=== PATIENT | male | born 1970 | race African-American/Black ===

== ENCOUNTER 2017-07-11 10:41 | Inpatient (IN) | payer SELFPAY ==
[~2017-07-11] VITALS: Ht 167.6 cm; Wt 83.8 kg
[~2017-07-11 10:41] MED LIST: RISP3 PO
[2017-07-11 10:50] VITALS: BP 163/90; PULSE 70; RESP 16; TEMP 98.5; O2SAT 100
--- NOTE | 2017-07-11 11:34 | PD ---
HPI . Anxiety Chief Complaint: Anxiety Time Seen by Provider: 11:00 Travel History International Travel<30 days: No Contact w/Intl Traveler<30days: No Traveled to known affect area: No History of Present Illness HPI This patient was reportedly dropped off at triage by EVAC with a chief complaint of anxiety. The patient is not talking to me or to his nurse or his student support advisor. Triage states that he told them that he was here for anxiety. I am not able to obtain any history from him at all. He will not speak and he will not write. Review of his records reveals that he has a history of paranoid schizophrenia. PFSH Past Medical History Cancer: No Cardiovascular Problems: No Diabetes: No Diminished Hearing: No Headaches: No Psychiatric: Yes (Pt reports he was being treated by [facility] for mental illness) Immunizations Current: Yes Schizophrenia: Yes Seizures: No Social History Alcohol Use: No Tobacco Use: No Substance Use: Yes Allergies-Medications (Allergen,Severity, Reaction): Coded Allergies: penicillin G (Unverified Allergy, Unknown, 11/05/16) Reported Meds & Prescriptions Reported Meds & Active Scripts Active Risperdal (Risperidone) 3 Mg Tab 3 Mg PO Q12HR 30 Days Review of Systems ROS Limitations: Uncooperative Physical Exam Narrative GENERAL: Awake and alert and in no acute distress. He will nod and smile and say a word here or there but will not answer questions as to why he is here. He told the nurse that she was a "baby" and pointed to my watch and said "[employer]". SKIN: Warm and dry. HEAD: Normocephalic/atraumatic. EYES: Pupils are equal. Extraocular movements are intact. ENT: Mucous membranes are moist. NECK: Normal range of motion. CARDIOVASCULAR: Regular rate and rhythm. RESPIRATORY: Nonlabored respirations. MUSCULOSKELETAL: Atraumatic. NEUROLOGICAL: He is alert. His cranial nerves appear grossly intact. He is ambulatory and is moving all 4 extremities equally. He will not cooperate for evaluation of muscle strength, [id number] exam, etc. PSYCHIATRIC: He smiles. Other than that, I cannot assess his psyche. Data Data Last Documented VS Vital Signs Date Time Temp Pulse Resp B/P (MAP) Pulse Ox O2 Delivery O2 Flow Rate FiO2 07/11/17 10:50 98.5 70 16 163/90 (114) 100 Orders Orders Complete Blood Count With Diff (07/11/17 11:11) Comprehensive Metabolic Panel (07/11/17 11:11) Thyroid Stimulating Hormone (07/11/17 11:11) Psych Screen (07/11/17 11:11) Drug Screen, Random Urine (07/11/17 11:11) Diet Heart Healthy (07/11/17 Lunch) Ziprasidone Inj (Geodon Inj) (07/11/17 15:15) Potassium Chloride (Kcl) (07/11/17 16:15) Labs Laboratory Tests Test 07/11/17 15:05 White Blood Count 8.1 TH/MM3 Red Blood Count 5.32 MIL/MM3 Hemoglobin 15.8 GM/DL Hematocrit 46.8 % Mean Corpuscular Volume 87.9 FL Mean Corpuscular Hemoglobin 29.7 PG Mean Corpuscular Hemoglobin Concent 33.8 % Red Cell Distribution Width 14.9 % Platelet Count 291 TH/MM3 Mean Platelet Volume 8.0 FL Neutrophils (%) (Auto) 72.0 % Lymphocytes (%) (Auto) 18.9 % Monocytes (%) (Auto) 8.0 % Eosinophils (%) (Auto) 0.3 % Basophils (%) (Auto) 0.8 % Neutrophils # (Auto) 5.9 TH/MM3 Lymphocytes # (Auto) 1.5 TH/MM3 Monocytes # (Auto) 0.7 TH/MM3 Eosinophils # (Auto) 0.0 TH/MM3 Basophils # (Auto) 0.1 TH/MM3 CBC Comment DIFF FINAL Differential Comment Blood Urea Nitrogen 12 MG/DL Creatinine 0.99 MG/DL Random Glucose 93 MG/DL Total Protein 9.1 GM/DL Albumin 4.6 GM/DL Calcium Level 9.1 MG/DL Alkaline Phosphatase 66 U/L Aspartate Amino Transf (AST/SGOT) 19 U/L Alanine Aminotransferase (ALT/SGPT) 28 U/L Total Bilirubin 0.6 MG/DL Sodium Level 140 MEQ/L Potassium Level 3.2 MEQ/L Chloride Level 106 MEQ/L Carbon Dioxide Level 25.7 MEQ/L Anion Gap 8 MEQ/L Estimat Glomerular Filtration Rate 98 ML/MIN Thyroid Stimulating Hormone 3rd Gen 1.020 uIU/ML MDM Medical Decision Making Medical Screen Exam Complete: Yes Emergency Medical Condition: Yes Medical Record Reviewed: Yes (Medical records reveal a history of paranoid schizophrenia) Differential Diagnosis Differential diagnosis of psychosis includes but is not limited to schizophrenia , schizoaffective disorder, bipolar disorder, intoxication, substance abuse, dementia Narrative Course This patient presented to us by EVAC to triage reportedly for anxiety. The patient will not provide any history either verbally or by writing. He will not allow us to check his phone for contact numbers. He is here alone. Medical screening exam is in process. We will then ask psychiatry to see him. CBC & BMP Diagram 07/11/17 15:05 Total Protein 9.1 H, Albumin 4.6, Calcium Level 9.1, Alkaline Phosphatase 66, Aspartate Amino Transf (AST/SGOT) 19, Alanine Aminotransferase (ALT/SGPT) 28, Total Bilirubin 0.6 Potassium has been replaced orally. This patient is medically clear for psychiatric admission. Diagnosis Primary Impression: Medical clearance for psychiatric admission Condition: Stable Magali Craig MD Jul 11, 2017 11:34
[2017-07-11] MEDS ORDERED: ZIPRASIDONE MESYLATE 20 MG VIAL IM SCH (15:15)
[2017-07-11 15:28] LABS: AUTOMATED NEUTROPHIL # 5.9 TH/MM3 (1.8-7.7); BASOPHIL # 0.1 TH/MM3 (0-0.2); BASOPHIL % 0.8 % (0.0-2.0); EOSINOPHIL % 0.3 % (0.0-4.0); HEMATOCRIT 46.8 % (39.0-51.0); HEMOGLOBIN 15.8 GM/DL (13.0-17.0); LYMPH % 18.9 % (9.0-44.0); LYMPHOCYTE # 1.5 TH/MM3 (1.0-4.8); MEAN CELL VOLUME 87.9 FL (80.0-100.0); MEAN CORPUSCULAR HEMOGLOBIN 29.7 PG (27.0-34.0); MEAN CORPUSCULAR HGB CONC 33.8 % (32.0-36.0); MONOCYTE # 0.7 TH/MM3 (0-0.9); PLATELET COUNT 291 TH/MM3 (150-450); RED BLOOD COUNT 5.32 MIL/MM3 (4.50-5.90); RED CELL DISTRIBUTION WIDTH 14.9 % (11.6-17.2); WHITE BLOOD COUNT 8.1 TH/MM3 (4.0-11.0)
[2017-07-11 15:55] LABS: ALBUMIN 4.6 GM/DL (3.4-5.0); ALT (GPT) 28 U/L (12-78); AST (GOT) 19 U/L (15-37); BICARBONATE 25.7 MEQ/L (21.0-32.0); BLOOD UREA NITROGEN 12 MG/DL (7-18); CALCIUM 9.1 MG/DL (8.5-10.1); CHLORIDE 106 MEQ/L (98-107); CREATININE 0.99 MG/DL (0.60-1.30); GLOMERULAR FILTRATION RATE 98 ML/MIN (>89); GLUCOSE,RANDOM 93 MG/DL (74-106); SODIUM (NA) 140 MEQ/L (136-145)
[2017-07-11 16:05] LABS: ALKALINE PHOSPHATASE 66 U/L (45-117); TOTAL BILIRUBIN ADULT 0.6 MG/DL (0.2-1.0); TOTAL PROTEIN 9.1 GM/DL (6.4-8.2)
[2017-07-11] MEDS ORDERED: POTASSIUM CHLORIDE 20 MEQ CONTROLLED RELEASE TAB PO ONE (16:15)
[2017-07-11 18:57] VITALS: BP 140/76; PULSE 80; RESP 16; TEMP 98.7; O2SAT 98
[2017-07-11 22:35] VITALS: BP 132/74; PULSE 80; RESP 18; TEMP 98.7; O2SAT 98
[2017-07-12 06:25] VITALS: BP 130/77; PULSE 99; RESP 18; TEMP 99.5; O2SAT 97
--- NOTE | 2017-07-12 08:02 | HHI.HP ---
Provisional Diagnosis Admission Date 07/12/17 [place] I. 1. Schizophrenia, paranoid type, in acute exacerbation with catatonia [place] II. Deferred Certification of Person's Competence To Provide Express and Informed Consent I have personally examined Jong Gutierrez , a person being served at [facility] on, Jul 12, 2017 08:02. Express and informed consent means consent voluntarily given in writing, by a competent person, after sufficient explanation and disclosure of the subject matter involved to enable the person to make a knowing and willful decision without any element of force, fraud, deceit, duress, or other form of constraint or coercion. This person is 18 years of age or older, is not now known to be incompetent to consent to treatment with a guardian advocate, and does not have a health care surrogate or proxy currently making medical treatment decisions. I have found this person to be one of the following: [] Competent to provide express and informed consent, as defined above, for voluntary admission to this facility and is competent to provide express and informed consent for treatment. He/she has the consistent capacity to make well reasoned, willful, and knowing decisions concerning his or her medical or mental health treatment. The person fully and consistently understands the purpose of the admission for examination/placement and is fully capable of personally exercising all rights assured [place] [x] Incompetent to provide express and informed consent to voluntary admission, and this is incompetent to provide express and informed consent to treatment. The person must be transferred to involuntary status and a petition for a guardian advocate filed with the Circuit Court. [] Refusing to provide express and informed consent to voluntary admission but is competent to provide express and informed consent for treatment. The person must be discharged or transferred to involuntary status. Form shall be completed within 24 hours of a person's arrival at the receiving facility and filed in the clinical record of each person: 1. Admitted on a voluntary basis 2. Permitted to provide express and informed consent to his/her own treatment 3. Allowed to transfer from involuntary to voluntary status 4. Prior to permitting a person to consent to his or her own treatment after having been previously found incompetent to consent to treatment. History of Present Illness Capacity: Lacks Capacity Psych Chief Complaint: Psychosis/catatonia HPI Mr. Gutierrez is a 46-year-old male with a history of schizophrenia who presented voluntarily for psychiatric evaluation. Patient was mute for ED provider. Reviewing the electronic medical record, I note the patient was admitted [place] [address] Soliman. Patient seen and examined. Chart reviewed. Case discussed with nursing staff. On my initial examination, the patient is posturing and mute. He is disheveled. He exhibits waxy flexibility, negativism and gegenhalten. Suspecting catatonia, I have ordered RN to medicate patient with Ativan 2mg IM stat. I return ~20min later to re-assess patient. He is somewhat more interactive. He does verbalize somewhat, although his responses to questions and to verbal instruction remain inappropriate. For example, when I ask him to give me his arm to examine for ongoing waxy flexibility he instead hands me the bible at his bedside. He smiles inappropriately. He is non-committal regarding SI/HI/AVH when asked about each of these. He appears internally stimulated. When I ask in conclusion if he has anything else to tell me, he says "my father was a [place] ." As I am exiting, the patient tries repeatedly to beckon me to within his arms' reach. Psychiatric interview is limited because of patient's psychiatric condition. He does not verbalize any physical complaints. I am unable to obtain any past psychiatric, family, chemical dependency or social history from the patient because of his psychiatric impairment at present. I obtained collateral information from the patient's Anahi Hernández at . She notes that the patient has a history of paranoid schizophrenia and has a history of psychiatric decompensations surrounding moves to a new locale. She notes that the family recently moved from [facility] about a month ago, and she suspects that the patient has not been taking his meds since arriving in the area. He was previously on Risperdal and received some sort of long-acting injectable. She notes that the patient has a history of catatonia in the past. She is willing to serve as health care surrogate. She is in agreement with having the patient hospitalized now and after discussion of the R /B/A is in agreement with the treatment plan as outlined below. We discussed patient's legal status and [place] act [address]. I spent approximately 10 minutes in telephone consultation with patient's . Review of Systems ROS Limitations: Psychotic, Poor Historian, Other (Catatonic) Other Limited ROS secondary to above. Past Family Social History Coded Allergies: penicillin G (Unverified Allergy, Unknown, 11/05/16) Past Medical History Per , no chronic medical conditions. On no home medications besides psychotropics. Discontinued Scripts Risperidone (Risperdal) 3 Mg Tab, 3 MG PO Q12HR for hallucinations for 30 Days, TAB 0 Refills Prov:Ayden Soliman MD 10/07/14 Current Medications Medications (Trade) Dose Ordered Sig/Pablo Route Start Time Stop Time Status Last Admin (Geodon Inj) 20 mg ONCE IM 07/11/17 15:15 07/11/17 15:20 Patient's Strengths (min. 2) Supportive . In a monitored setting. Physical Exam Physical examination completed by ED provider. On my examination today, the patient appears to be in no acute physical distress. Motor exam as above. Labs and vitals reviewed: Vital Signs Vital Signs Date Time Temp Pulse Resp B/P (MAP) Pulse Ox O2 Delivery O2 Flow Rate FiO2 07/12/17 06:25 99.5 99 18 130/77 (94) 97 Room Air Lab Results Test 07/11/17 15:05 White Blood Count 8.1 TH/MM3 Red Blood Count 5.32 MIL/MM3 Hemoglobin 15.8 GM/DL Hematocrit 46.8 % Mean Corpuscular Volume 87.9 FL Mean Corpuscular Hemoglobin 29.7 PG Mean Corpuscular Hemoglobin Concent 33.8 % Red Cell Distribution Width 14.9 % Platelet Count 291 TH/MM3 Mean Platelet Volume 8.0 FL Neutrophils (%) (Auto) 72.0 % Lymphocytes (%) (Auto) 18.9 % Monocytes (%) (Auto) 8.0 % Eosinophils (%) (Auto) 0.3 % Basophils (%) (Auto) 0.8 % Neutrophils # (Auto) 5.9 TH/MM3 Lymphocytes # (Auto) 1.5 TH/MM3 Monocytes # (Auto) 0.7 TH/MM3 Eosinophils # (Auto) 0.0 TH/MM3 Basophils # (Auto) 0.1 TH/MM3 CBC Comment DIFF FINAL Differential Comment Blood Urea Nitrogen 12 MG/DL Creatinine 0.99 MG/DL Random Glucose 93 MG/DL Total Protein 9.1 GM/DL Albumin 4.6 GM/DL Calcium Level 9.1 MG/DL Alkaline Phosphatase 66 U/L Aspartate Amino Transf (AST/SGOT) 19 U/L Alanine Aminotransferase (ALT/SGPT) 28 U/L Total Bilirubin 0.6 MG/DL Sodium Level 140 MEQ/L Potassium Level 3.2 MEQ/L Chloride Level 106 MEQ/L Carbon Dioxide Level 25.7 MEQ/L Anion Gap 8 MEQ/L Estimat Glomerular Filtration Rate 98 ML/MIN Thyroid Stimulating Hormone 3rd Gen 1.020 uIU/ML Mental Status Examination Appearance: Disheveled Consciousness: Other (Stuporous) Orientation: Person Motor Activity: Other (Motor exam as above) Speech: Other (Initially mute) Language: Other (When verbal, rambling) Attention and Concentration: Inadequate Mood: Other (Unable to obtain) Affect: Flat Thought Process & Associations: Disorganized Thought Content: Bizarre thinking, Thought blocking Hallucination Type: Auditory (Internally stimulated) Delusion Type: Other (Difficult to assess due to catatonia and formal thought disorder) Insight: Poor Judgment: Poor Mental Status Exam Remarks Patient is noncommittal regarding suicidal or homicidal ideation Assessment & Plan Problem List: (1) Schizophrenia ICD Codes: F20.9 - Schizophrenia, unspecified (2) Catatonia associated with another mental disorder ICD Codes: F06.1 - Catatonic disorder due to known physiological condition Assessment & Plan 46-year-old male with psychiatric history as detailed above who presents voluntarily for psychiatric evaluation. I find the patient in a catatonic state , partially relieved with IM Ativan. Collateral from patient's indicates that the patient has a history of paranoid schizophrenia and has had catatonia previously during exacerbations. He has previously been on Risperdal and long- acting injectable. I will plan to admit the patient to the inpatient psychiatric unit for safety, observation and stabilization. Admit inpatient. Involuntary status. I have completed first opinion. Consult for second opinion. Request healthcare surrogate and guardian advocate. For catatonia I will start the patient on scheduled Ativan 1 mg IV every 6 hours. For psychosis, I will start the patient on Risperdal 1 mg twice daily with plans to titrate to effect. Haldol IM as needed for severe agitation or in case of refusal of oral Risperdal. Additional Ativan as needed for anxiety, Cogentin as needed for EPS, Benadryl as needed for sleep. Check an EKG for QTC. Check a CK given catatonic state. Check a BMP and hemoglobin A1c as well as lipid panel in the morning. Vitals every shift. Counselor to see. Disposition planning. Estimated length of stay: 7-9 days. Discharge Planning Pending psychiatric stabilization Request HC Surrog/Guard Advoc?: Yes Problem Qualifiers (1) Schizophrenia: Qualified Codes: F20.0 - Paranoid schizophrenia Melo Moore MD Jul 12, 2017 08:02
[2017-07-12] MEDS ORDERED: LORazepam 2 MG/ML VIAL IM STA (08:06)
[2017-07-12] MEDS ORDERED: LORazepam 1 MG TAB PO PRN (09:00)
[2017-07-12] MEDS ORDERED: ACETAMINOPHEN 325 MG TAB PO PRN (09:00)
[2017-07-12] MEDS ORDERED: LORazepam 2 MG/ML VIAL IM PRN (09:00)
[2017-07-12] MEDS ORDERED: ALUMINUM/MAGNESIUM/SIMETH 30 ML CUP PO PRN (09:00)
[2017-07-12] MEDS ORDERED: MAGNESIUM HYDROXIDE SUSP 30 ML CUP PO PRN (09:00)
[2017-07-12] MEDS ORDERED: BENZTROPINE MESYLATE 1 MG TAB PO PRN (09:00)
[2017-07-12] MEDS ORDERED: HALOPERIDOL LACTATE 5 MG/ML AMP IM PRN (09:00)
[2017-07-12] MEDS: risperiDONE ODT 1 MG TAB PO SCH ×2 (09:00→20:27)
[2017-07-12] MEDS ORDERED: diphenhydrAMINE HCL 50 MG CAP PO PRN (09:00)
[2017-07-12] MEDS ORDERED: BENZTROPINE MESYLATE 2 MG/2 ML VIAL IM PRN (09:00)
[2017-07-12] MEDS ORDERED: NICOTINE 21 MG/24 HR PATCH T-DERMAL PRN (10:00)
[2017-07-12] MEDS ORDERED: LORazepam 2 MG/ML VIAL IV PUSH SCH (10:00)
[2017-07-12] MEDS: REMOVE OLD PATCH T-DERMAL SCH (10:00)
[2017-07-12 12:18] VITALS: BP 143/83; PULSE 79; RESP 18; TEMP 98.6
[2017-07-12 17:10] VITALS: BP 130/72; PULSE 71; RESP 18; TEMP 97.9; O2SAT 97
[2017-07-12] MEDS: LORazepam 2 MG/ML VIAL IM SCH ×2 (17:17→21:51)
[2017-07-13] MEDS: LORazepam 2 MG/ML VIAL IM SCH ×4 (04:00→22:22)
[2017-07-13 06:00] VITALS: BP 126/82; PULSE 97; RESP 17; TEMP 97.3; O2SAT 96
[2017-07-13] MEDS: REMOVE OLD PATCH T-DERMAL SCH (09:00)
[2017-07-13] MEDS: risperiDONE ODT 1 MG TAB PO SCH ×2 (09:00→20:53)
[2017-07-13 11:49] LABS: BICARBONATE 28.8 MEQ/L (21.0-32.0); BLOOD UREA NITROGEN 13 MG/DL (7-18); CALCIUM 9.3 MG/DL (8.5-10.1); CHLORIDE 102 MEQ/L (98-107); CHOLESTEROL 319 MG/DL (120-200); GLOMERULAR FILTRATION RATE 78 ML/MIN (>89); GLUCOSE,RANDOM 108 MG/DL (74-106); SODIUM (NA) 140 MEQ/L (136-145); TRIGLYCERIDES 84 MG/DL (42-150)
[2017-07-13 11:52] LABS: CHOLESTEROL/ HDL RATIO 6.49 RATIO; HDL CHOLESTEROL 49.1 MG/DL (40.0-60.0); LDL CHOLESTEROL 253 MG/DL (0-99)
--- NOTE | 2017-07-13 13:13 | HHI.PYPN ---
Subjective Chief Complaint: Psychosis/catatonia Remarks This is a request for second opinion. Admission note was reviewed and I agree with the history. Patient was seen and case was discussed with nursing. Patient is no longer catatonic today he is selectively mute per nursing. From my interview he was interactive and would answer most questions. According to the christopher Mcadams, patient asked them if he was allowed to have a gone without a felony conviction. To protect himself. When patient was asked about this he says he does not remember having asked that question. Also says I do not remember to many other questions. He has auditory hallucinations of music. He is behaving well on the unit Mental Status Examination Appearance: Disheveled Consciousness: Other Orientation: Person Motor Activity: Other Speech: Other Language: Adequate, Other Attention and Concentration: Adequate, Inadequate Memory: Unremarkable Mood: Sad, Oppositional, Other Affect: Irritable, Flat Thought Process & Associations: Disorganized Thought Content: Bizarre thinking, Thought blocking Hallucination Type: Auditory (Music) Delusion Type: Other Suicidal Ideation: No Suicidal Plan: No Suicidal Intention: No Homicidal Ideation: No Homicidal Plan: No Homicidal Intention: No Insight: Poor Judgment: Poor Results Labs Test 07/13/17 10:34 Blood Urea Nitrogen 13 MG/DL Creatinine 1.20 MG/DL Random Glucose 108 MG/DL Calcium Level 9.3 MG/DL Sodium Level 140 MEQ/L Potassium Level 3.4 MEQ/L Chloride Level 102 MEQ/L Carbon Dioxide Level 28.8 MEQ/L Anion Gap 9 MEQ/L Estimat Glomerular Filtration Rate 78 ML/MIN Triglycerides Level 84 MG/DL Cholesterol Level 319 MG/DL LDL Cholesterol 253 MG/DL HDL Cholesterol 49.1 MG/DL Cholesterol/HDL Ratio 6.49 RATIO Vitals/IOs Vital Signs Date Time Temp Pulse Resp B/P (MAP) Pulse Ox O2 Delivery O2 Flow Rate FiO2 07/12/17 17:10 97.9 71 18 130/72 (91) 97 07/12/17 06:25 Room Air Assessment & Plan Problem List: (1) Schizophrenia ICD Codes: F20.9 - Schizophrenia, unspecified (2) Catatonia associated with another mental disorder ICD Codes: F06.1 - Catatonic disorder due to known physiological condition Assessment & Plan I agree with the first opinion to continue petition. Criteria include resolving catatonia and self-care deficits Justification for Cont. Inpt. Patient would decompensate in a less restrictive setting Request HC Surrog/Guard Advoc?: Yes Problem Qualifiers (1) Schizophrenia: Qualified Codes: F20.0 - Paranoid schizophrenia Ant Kramer DO Jul 13, 2017 13:13
[2017-07-13 15:59] VITALS: BP 133/99; PULSE 88; RESP 17; TEMP 97.5; O2SAT 96
--- NOTE | 2017-07-14 00:40 | EKG ---
Date Performed: 07/12/2017 Time Performed: 14:11:33 PTAGE: 46 years EKG: Sinus rhythm ST DEVIATION AND MODERATE T-WAVE ABNORMALITY, CONSIDER INFERIOR ISCHEMIA ABNORMAL ECG NO PREVIOUS TRACING DOCTOR: Sherif Sprague Interpretating Date/Time 07/14/2017 00:39:55
[2017-07-14] MEDS: LORazepam 2 MG/ML VIAL IM SCH (04:12)
[2017-07-14 06:23] VITALS: BP 129/88; PULSE 79; RESP 18; TEMP 97.1; O2SAT 96
[2017-07-14] MEDS: risperiDONE ODT 1 MG TAB PO SCH (08:23)
[2017-07-14] MEDS: REMOVE OLD PATCH T-DERMAL SCH (09:00)
--- NOTE | 2017-07-14 10:02 | HHI.PYPN ---
Subjective Chief Complaint: Psychosis/catatonia Remarks Patient seen and examined with nurse. Chart reviewed. Case discussed with nursing staff who reports the patient has been well behaved on the unit but has been noted to have long conversations on the telephone with no one suspected to be on the other end. On my examination today, catatonia seems to be resolving. The patient continues to exhibit thought disorder however. He seems to apologize for his behavior at our first meeting, although I do not recall this being particularly disturbed except by psychosis, and he says that this was due to "rejection to us meeting because we went to 2 different universities." When I try to inquire what University he attended he says "that is hypothetical." He denies any SI or HI. Denies any AVH but remained somewhat internally stimulated. Applauds at nothing in particular. Denies side effects from medications. No physical complaints. Review of Systems ROS Limitations: Psychotic, Poor Historian Except as stated in HPI: all other systems reviewed are Neg Mental Status Examination Appearance: Appropriate Consciousness: Alert Orientation: Person, Place Motor Activity: Other (No hand tremor, no cogwheeling, no dystonia, no dyskinesia. No posturing, no stereotypies (besides possibly applauding), no other signs of catatonia.) Speech: Other Language: Adequate, Other Attention and Concentration: Adequate, Inadequate Memory: Impaired (Psychosis interferes) Mood: Other (calm) Affect: Blunt Thought Process & Associations: Tangential Thought Content: Bizarre thinking, Thought blocking Hallucination Type: Other (Appears internally stimulated) Delusion Type: None Suicidal Ideation: No Suicidal Plan: No Suicidal Intention: No Homicidal Ideation: No Homicidal Plan: No Homicidal Intention: No Insight: Poor Judgment: Poor Results Labs Test 07/13/17 10:34 Blood Urea Nitrogen 13 MG/DL Creatinine 1.20 MG/DL Random Glucose 108 MG/DL Calcium Level 9.3 MG/DL Sodium Level 140 MEQ/L Potassium Level 3.4 MEQ/L Chloride Level 102 MEQ/L Carbon Dioxide Level 28.8 MEQ/L Anion Gap 9 MEQ/L Estimat Glomerular Filtration Rate 78 ML/MIN Total Creatine Kinase 569 U/L Creatine Kinase MB 1.6 NG/ML Creatine Kinase MB % 0.3 % Triglycerides Level 84 MG/DL Cholesterol Level 319 MG/DL LDL Cholesterol 253 MG/DL HDL Cholesterol 49.1 MG/DL Cholesterol/HDL Ratio 6.49 RATIO Labs reviewed Vitals/IOs Vital Signs Date Time Temp Pulse Resp B/P (MAP) Pulse Ox O2 Delivery O2 Flow Rate FiO2 07/14/17 06:23 97.1 79 18 129/88 (102) 96 07/12/17 06:25 Room Air Assessment & Plan Problem List: (1) Schizophrenia ICD Codes: F20.9 - Schizophrenia, unspecified (2) Catatonia associated with another mental disorder ICD Codes: F06.1 - Catatonic disorder due to known physiological condition Assessment & Plan: resolving Assessment & Plan Titrate Risperdal to 2 mg twice daily to target psychotic symptoms. I will change patient's Ativan to 1mg q6h PO. Encourage fluids, replete K and recheck a BMP, CK and check a Mg in am. Continue to monitor on inpatient unit. Continue other medications and care as ordered. Justification for Cont. Inpt. Med changes. Impairment in reality construction. Risk for decompensation in less restrictive environment. Discharge Planning Pending psychiatric stabilization Request HC Surrog/Guard Advoc?: Yes Problem Qualifiers (1) Schizophrenia: Qualified Codes: F20.0 - Paranoid schizophrenia Melo Moore MD Jul 14, 2017 10:02
[2017-07-14] MEDS: LORazepam 1 MG TAB PO SCH ×3 (10:17→23:59)
[2017-07-14] MEDS ORDERED: POTASSIUM CHLORIDE 10 MEQ CONTROLLED RELEASE TAB PO ONE (11:30)
[2017-07-14 16:42] LABS: HEMOGLOBIN A1C 5.5 % (4.3-6.0)
[2017-07-14] MEDS: risperiDONE ODT 2 MG TAB PO SCH (21:08)
[2017-07-15] MEDS: LORazepam 1 MG TAB PO SCH (06:00)
[2017-07-15 06:18] VITALS: BP 141/84; PULSE 97; RESP 18; TEMP 97.7
[2017-07-15] MEDS: REMOVE OLD PATCH T-DERMAL SCH (09:00)
[2017-07-15] MEDS: risperiDONE ODT 2 MG TAB PO SCH (09:23)
--- NOTE | 2017-07-15 10:35 | HHI.PYPN ---
Subjective Chief Complaint: Psychosis/catatonia Remarks Patient seen and examined with nurse. Chart reviewed. Case discussed with nursing staff. Patient continues to make odd statements at times per nursing staff. Case discussed in treatment team. Counselor notes patient's is desirous to have patient home as soon as possible. I did endeavor to reach out to patient's today by phone but could not reach her. On my exam, patient is discharge focused. He speaks at length, although it remains a little difficult to follow the sense of what he is saying. He displays a buddhism preoccupation. He denies SI/HI. He denies AVH but remains somewhat internally stimulated. No side effects from medications. No physical complaints. Review of Systems ROS Limitations: Psychotic, Poor Historian Except as stated in HPI: all other systems reviewed are Neg Mental Status Examination Appearance: Appropriate Consciousness: Alert Orientation: Person, Place Motor Activity: Other (No motor abnormalities noted) Speech: Unremarkable Language: Other (Rambling) Fund of Knowledge: Adequate Attention and Concentration: Adequate Memory: Impaired (Psychosis interferes) Mood: Other (calm) Affect: Blunt Thought Process & Associations: Circumstantial Thought Content: Bizarre thinking Hallucination Type: Other (Remains a little internally stimulated) Delusion Type: None Suicidal Ideation: No Suicidal Plan: No Suicidal Intention: No Homicidal Ideation: No Homicidal Plan: No Homicidal Intention: No Insight: Poor Judgment: Poor Results Labs Labs reviewed. CK slightly increased. GFR stable. Vitals/IOs Vital Signs Date Time Temp Pulse Resp B/P (MAP) Pulse Ox O2 Delivery O2 Flow Rate FiO2 07/15/17 06:18 97.7 97 18 141/84 (103) 07/14/17 06:23 96 07/12/17 06:25 Room Air Assessment & Plan Problem List: (1) Schizophrenia ICD Codes: F20.9 - Schizophrenia, unspecified Assessment & Plan Catatonia appears to be resolved but patient continues to exhibit thought disorder consistent with psychosis. Discontinue scheduled Ativan and titrate Risperdal to 3mg BID. To consider long-acting injectable antipsychotic. CK is mildly increased but not to a degree to require IVF, and there is no evidence of worsening renal function. I will trend CK and BMP. Continue to monitor on inpatient unit. Continue other medications and care as ordered. Justification for Cont. Inpt. Medication changes. Impairment in reality construction, resolving. High risk for decompensation in less restrictive environment. Discharge Planning Pending psychiatric stabilization Request HC Surrog/Guard Advoc?: Yes Problem Qualifiers (1) Schizophrenia: Qualified Codes: F20.0 - Paranoid schizophrenia Melo Moore MD Jul 15, 2017 10:35
[2017-07-15 11:18] LABS: CALCIUM 9.5 MG/DL (8.5-10.1); CREATININE 1.19 MG/DL (0.60-1.30); MAGNESIUM 2.2 MG/DL (1.5-2.5)
[2017-07-15] MEDS ORDERED: LORazepam 0.5 MG TAB PO SCH (12:00)
[2017-07-15 18:19] VITALS: BP 124/72; PULSE 88; RESP 18; TEMP 98; O2SAT 99
[2017-07-15] MEDS: risperiDONE ODT 3 MG TAB PO SCH (20:11)
[2017-07-16 05:38] VITALS: BP 164/82; PULSE 82; RESP 16; TEMP 97.9; O2SAT 99
[2017-07-16] MEDS: risperiDONE ODT 3 MG TAB PO SCH (08:30)
[2017-07-16] MEDS: REMOVE OLD PATCH T-DERMAL SCH (09:00)
[2017-07-16 09:50] LABS: BICARBONATE 27.6 MEQ/L (21.0-32.0); CALCIUM 9.3 MG/DL (8.5-10.1); CREATININE 1.12 MG/DL (0.60-1.30)
[2017-07-16] MEDS ORDERED: RISP3 PO (10:25)
--- NOTE | 2017-07-16 10:25 | HHI.DS ---
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 Gutierrez is a 46-year-old male with a history of schizophrenia who presented voluntarily for psychiatric evaluation. Patient was mute for ED provider. Reviewing the electronic medical record, I note the patient was admitted in [address] Soliman. Patient seen and examined. Chart reviewed. Case discussed with nursing staff. On my initial examination, the patient is posturing and mute. He is disheveled. He exhibits waxy flexibility, negativism and gegenhalten. Suspecting catatonia, I have ordered RN to medicate patient with Ativan 2mg IM stat. I return ~20min later to re-assess patient. He is somewhat more interactive. He does verbalize somewhat, although his responses to questions and to verbal instruction remain inappropriate. For example, when I ask him to give me his arm to examine for ongoing waxy flexibility he instead hands me the bible at his bedside. He smiles inappropriately. He is non-committal regarding SI/HI/AVH when asked about each of these. He appears internally stimulated. When I ask in conclusion if he has anything else to tell me, he says "my father was a [place] ." As I am exiting, the patient tries repeatedly to beckon me to within his arms' reach. Psychiatric interview is limited because of patient's psychiatric condition. He does not verbalize any physical complaints. I am unable to obtain any past psychiatric, family, chemical dependency or social history from the patient because of his psychiatric impairment at present. I obtained collateral information from the patient's Anahi Hernández at [phone]. She notes that the patient has a history of paranoid schizophrenia and has a history of psychiatric decompensations surrounding moves to a new locale. She notes that the family recently moved from [facility] about a month ago, and she suspects that the patient has not been taking his meds since arriving in the area. He was previously on Risperdal and received some sort of long-acting injectable. She notes that the patient has a history of catatonia in the past. She is willing to serve as health care surrogate. She is in agreement with having the patient hospitalized now and after discussion of the R /B/A is in agreement with the treatment plan as outlined below. We discussed patient's legal status and [place] [address]. I spent approximately 10 minutes in telephone consultation with patient's . Tobacco Use In Past 30 Days: No Tobacco Past 30 Days Alcohol Use: Never Hospital Course Patient was admitted to a locked, inpatient psychiatric unit. Appropriate precautions were in place throughout patient's hospital stay. Patient was seen and examined on the unit by psychiatry and also visited by counselor. Psychotropic medications were adjusted. Patient tolerated medications well without side effects. Patient had improvement in presenting psychiatric symptomatology during the course of his hospital stay. Catatonia resolved and psychosis improved. There was no evidence of suicidality or homicidality on the inpatient unit. Although self-care deficit was present at admission, on discharge there was no evidence of self-care deficit. Patient remained in behavioral control and was compliant with medications. On the day of discharge : Patient seen and examined with nurse. Chart reviewed. Case discussed with nursing staff. No behavioral issues noted overnight. On my examination today, the patient is requesting discharge from the inpatient psychiatric unit today. He denies any suicidal or homicidal ideation, intent or plan and contracts for safety. I can elicit no depressive or hypomanic/manic symptoms. He remained somewhat internally preoccupied but denies audiovisual hallucinations. No delusional material elicited. He denies side effects from medications. He has no physical complaints. I have obtained collateral information from the patient 's on day of discharge. She notes that she has been visiting the patient daily and believes that he is back to his psychiatric baseline. She has no safety concerns about the patient being discharged home today. I did offer to initiate long-acting injectable antipsychotic prior to discharge, but patient's wishes to follow up with outpatient mental health provider and discuss it then. I have discussed with both patient and the elevated CK and decreased GFR and the need for outpatient monitoring of these issues as well as good hydration. Suicide and violence risk assessment on day of discharge both suggest lower imminent risk from mental illness, and the patient's level of function is adequate for outpatient care. The patient does not meet criteria for ongoing involuntary psychiatric hospitalization. I have recommended that he remain voluntarily for further observation, but he is requesting discharge today. Patient will be discharged home with psychiatric follow-up as arranged by counselor. Patient is also to follow up with primary care. I have counseled the patient to return to the psychiatric emergency room for any concerning psychiatric symptoms as part of a general safety plan. Results Blood Pressure 164 / 82 Vital Signs Date Time Temp Pulse Resp B/P (MAP) Pulse Ox O2 Delivery O2 Flow Rate FiO2 07/16/17 05:38 97.9 82 16 164/82 (109) 99 Laboratory Tests Test 07/13/17 10:34 07/15/17 09:27 07/16/17 08:30 Random Glucose 108 MG/DL (74-106) 134 MG/DL (74-106) Potassium Level 3.4 MEQ/L (3.5-5.1) Estimat Glomerular Filtration Rate 78 ML/MIN (>89) 79 ML/MIN (>89) 85 ML/MIN (>89) Total Creatine Kinase 569 U/L (39-308) 662 U/L (39-308) 390 U/L (39-308) Cholesterol Level 319 MG/DL (120-200) LDL Cholesterol 253 MG/DL (0-99) Laboratory Results Test 07/13/17 10:34 Cholesterol Level 319 MG/DL (120-200) HDL Cholesterol 49.1 MG/DL (40.0-60.0) Hemoglobin A1c 5.5 % (4.3-6.0) LDL Cholesterol 253 MG/DL (0-99) Triglycerides Level 84 MG/DL (42-150) Summary of Procedures None done Imaging None done Pending results at discharge: No Medications # of Antipsychotic meds at D/C: 1 Approp Antipsych med options 1 - Minimum of three failed multiple trials of monotherapy. 2 - Documented plan to taper to monotherapy due to previous use of multiple meds OR cross-taper in progress at D/C. 3 - Documentation of augmentation of Clozapine. 4 - Justification other than those listed in allowable values 1-3, document here : Discharge Discharge Date: Jul 16, 2017 Discharge Diagnosis: (1) Schizophrenia Diagnosis: Principal (improved versus admission) ICD Code: F20.9 - Schizophrenia, unspecified Pt Condition on Discharge: Stable Discharge Disposition: Discharge Home Discharge Instructions Diet Instructions: As Tolerated, No Restrictions Activities you can perform: Weight Bearing as Jose Scheduled Appointment: As per counselors notes New Orders: BASIC METABOLIC PROF - 1 Week CREATININE KINASE - 1 Week New Medications: Risperidone (Risperdal) 3 Mg Tab 3 MG PO Q12HR for Mental Health for 15 Days, TAB 1 Refill Discharge Time > 30 minutes Mental Status Examination Appearance: Appropriate Consciousness: Alert Orientation: Person, Place, Date/Time (Approximate) Motor Activity: Other (No hand tremor, no dystonia, no dyskinesias, no other motor abnormalities noted.) Speech: Unremarkable Language: Adequate Fund of Knowledge: Adequate Attention and Concentration: Adequate Memory: Unremarkable Mood: Appropriate Affect: Appropriate Thought Process & Associations: Intact, Logical, Linear Thought Content: Appropriate Hallucination Type: Other (Denies AVH but mild internal preoccupation) Delusion Type: None Suicidal Ideation: No Suicidal Plan: No Suicidal Intention: No Homicidal Ideation: No Homicidal Plan: No Homicidal Intention: No Mental Status Exam Remarks Insight and judgment are fair at best Discharge/Advance Care Plan Health Problems: (1) Schizophrenia Goals to promote your health * To prevent worsening of your condition and complications * To maintain your health at the optimal level Directions to meet your goals Take your medications as prescribed Follow your dietary instruction Follow activity as directed Keep your appointments as scheduled Take your immunizations and boosters as scheduled If your symptoms worsen call your PCP, if no PCP go to Urgent Care Center or Emergency Room For 24/ questions related to your inpatient stay or results of tests pending at discharge, please contact Dr. Melo Moore at Smoking is Dangerous to Your Health. Avoid second hand smoking Problem Qualifiers (1) Schizophrenia: Qualified Codes: F20.0 - Paranoid schizophrenia Melo Moore MD Jul 16, 2017 10:25
== END 2017-07-16 15:30 | disposition home or self-care (01) | DRG 885 ==
LOC: NEPD 10:41 → NEDA 07-12 08:51 → H260 07-12 11:20 → H270 07-12 13:30
PROVIDERS: ADMIT Psychiatry & Neurology Psychiatry; ATTEND Psychiatry & Neurology Psychiatry
DX: F20.0 Paranoid schizophrenia (principal); F06.1 Catatonic disorder due to known physiological condition; Z79.899 Other long term (current) drug therapy
CPT/HCPCS: 80048; 80053; 80061; 82550; 82552; 83036; 83735; 84443; 85025; 93005; 96372; J2060; J3486; Q0163